=== PATIENT | female | born 1950 | race Caucasian/White ===

== ENCOUNTER 2018-08-12 19:08 | Inpatient (IN) | payer OTHER, MEDICARE ==
[~2018-08-12] VITALS: Ht 170.2 cm; Wt 71.7 kg
--- NOTE | ~2018-08-12 | EKG ---
[place] [address] [employer] [facility] [place] [address] ELECTROCARDIOGRAM REPORT Name: MAGDALENO NINO Room #: 247-P ADM IN M.R.#: [id number] Admission: 08/12/18 Attend Phys: Blake Thacker MD Discharge: Date of : 50 Report #: [id number] THIS REPORT FOR: //name// [facility] ED Test Date: 2018-08-12 Test Time: 19:27:06 Pat Name: MAGDALENO NINO Department: Room: [facility] Gender: F Card Hanger: [place] : 1950 Requested By: Eva Benjamin Order Number: [id number] MD: Bryson Mcintyre Measurements Intervals [place] Rate: 70 P: MD: 146 QRS: 35 QRSD: 100 T: 43 QT: 426 QTc: 460 Interpretive Statements Possible atrial-paced rhythm Nonspecific ST and T wave abnormality Compared to ECG 02/13/2018 15:29:00 T-wave abnormality now present Electronically Signed On 08-13-2018 10:49:24 SILO OPERATOR by Bryson Mcintyre [email or web address] <ELECTRONICALLY SIGNED> By: Bryson Mcintyre MD, LOCATED WITHIN [facility] 08/13/18 1049 26 26 Bryson Mcintyre MD, LOCATED [facility]IN [facility] /EPI
[~2018-08-12 19:08] MED LIST: ADDERALL 20 MG20 M1 PO; ADDERALL 30 MG30 MG PO; AMBIEN; ATIVAN1 MG PO; CARISOPRODOL; CARISOPRODOL 3350 MG PO; CELEXA 20 MG TA20 M1 PO; CELEXA40 MG PO; CIPROFLOXACIN500 M1 PO; CITRATE OF MAG296 ML PO; CLONAZEPAM 1 MG1 M1 PO; CLONAZEPAM PO; COLACE100 MG PO; COMBIVENT RESPIM4 GM INH; DEPAKOTE ER500 MG PO; DESYREL100 MG PO; DESYREL150 MG PO; DILAUDID 2 MG TA2 MG PO; DOCUSATE SODIU100 MG PO; DOXYCYCLINE 10100 M1 PO; EFFEXOR XR150 MG PO; EFFEXOR XR75 MG PO; EFFEXOR75 MG PO; ENDOCET 10-3251 EACH PO; FLAGYL500 MG PO; GAS-X125 MG PO; GLYCOLAX POWDER17 G1 PO; HYDROCODON-ACE1 EAC4; HYDROCODON-ACE1 EAC5 PO; IBUPROFEN 800800 M1 PO; LEXAPRO20 MG PO; METAMUCIL197.2 GM; MILK OF MAGNESIA; MOM PO; NEURONTIN 300300 M1 PO; NEURONTIN 300M300 M2 PO; NORCO 5-325 TA1 EACH PO; PERCOCET 10-321 EAC1 PO; PERCOCET 10-321 EACH PO; PERCOCET 5-3251 EACH PO; PERCOCET PO; PHENERGAN 25 MG25 M1 PO; PRILOSEC 20 MG20 MG PO; PROMETHEGAN12.5 MG; PROTONIX40 M1 PO; REMERON15 MG PO; SILENOR6 MG PO; VENLAFAXIN75 MG/1 T1 PO
[2018-08-12 19:10] VITALS: BP 148/88
[2018-08-12 19:36] LABS: URINE BILIRUBIN NEGATIVE (Negative); URINE BLOOD 1+ (Negative); URINE CLARITY CLEAR; URINE COLOR YELLOW; URINE GLUCOSE-RANDOM* NEGATIVE (Negative); URINE KETONES NEGATIVE (Negative); URINE LEUKOCYTES-REFLEX NEGATIVE (Negative); URINE NITRITE-REFLEX NEGATIVE (Negative); URINE PROTEIN (DIPSTICK) NEGATIVE (Negative); URINE UROBILINOGEN 0.2 E.U./dl (0.2-1.0)
[2018-08-12 19:43] LABS: BACTERIA-REFLEX None Seen /HPF (None Seen); CASTS None Seen /LPF (None Seen); CRYSTALS None Seen /LPF (None Seen); SQUAMOUS None Seen /LPF (0-3); URINE RBC 0-2 Rare /HPF (0-2); URINE WBC-REFLEX None Seen /HPF (0-5)
[2018-08-12 19:44] LABS: AMP/METHAMP Negative (Negative); BARBITURATES Negative (Negative); BENZODIAZEPINES POSITIVE (Negative); COCAINE Negative (Negative); METHADONE Negative (Negative); OPIATES Negative (Negative); PCP Negative (Negative)
[2018-08-12 19:49] LABS: ABSOLUTE NEUTROPHILS 2.7 thou/uL (1.4-8.2); BASOPHILS 0.7 % (0.0-2.0); EOSINOPHILS 1.5 % (0.0-3.0); HEMATOCRIT 41.7 % (37.0-47.0); HEMOGLOBIN 14.2 gm/dL (12.0-15.0); LYMPHOCYTES 46.1 % (24.0-44.0); MCH 32.3 pg (26.0-34.0); MCV 95.1 fL (80.0-100.0); MONOCYTES 6.5 % (1.0-8.0); PLATELET COUNT 179 thou/uL (150-400); POLYS 45.2 % (36.0-66.0); RBC 4.39 mil/uL (4.20-5.00); RDW 14.6 % (10.5-14.5); WBC 6.1 thou/uL (4.0-11.0)
[2018-08-12 20:04] LABS: CALCIUM 9.1 mg/dL (8.5-10.1)
[2018-08-12 20:06] LABS: POTASSIUM 5.8 mmol/L (3.5-5.1)
[2018-08-12 21:28] VITALS: BP 107/71
[2018-08-12 22:00] VITALS: BP 114/78
[2018-08-12 22:30] VITALS: BP 114/77
[2018-08-12 23:00] VITALS: BP 125/77
[2018-08-12 23:30] VITALS: BP 116/80
[2018-08-13] VITALS (27 sets, daily range): BP systolic 82–132; BP diastolic 21–87
[2018-08-13 05:25] LABS: CALCIUM 8.4 mg/dL (8.5-10.1)
[2018-08-13 05:32] LABS: POTASSIUM 3.9 mmol/L (3.5-5.1)
[2018-08-13] MEDS ORDERED: TRAZODONE HCL100 MG PO ×2 (09:21)
[2018-08-13] MEDS ORDERED: NEURONTIN 300300 M1 PO ×2 (09:21)
[2018-08-13] MEDS ORDERED: CELEBREX 200 M200 M1 PO ×2 (09:22)
[2018-08-14 07:03] LABS: HEMATOCRIT 35.7 % (37.0-47.0); MCH 32.3 pg (26.0-34.0); MCHC 33.4 g/dL (28.0-37.0); MCV 96.6 fL (80.0-100.0); RBC 3.7 mil/uL (4.20-5.00); RDW 15.1 % (10.5-14.5)
[2018-08-14 07:07] LABS: HEMOGLOBIN 11.9 gm/dL (12.0-15.0)
[2018-08-14 07:17] LABS: ALBUMIN 2.7 g/dL (3.4-5.0); CALCIUM 8.5 mg/dL (8.5-10.1); CREATININE 1.1 mg/dL (0.6-1.0); POTASSIUM 3.9 mmol/L (3.5-5.1); TOTAL BILIRUBIN 0.1 mg/dL (<0.1-1.0); TOTAL PROTEIN 5.6 g/dL (6.4-8.2)
[2018-08-14 08:00] VITALS: BP 94/69
[2018-08-14 10:00] VITALS: BP 88/61
[2018-08-14 12:00] VITALS: BP 100/67
[2018-08-14 14:00] VITALS: BP 104/68
== END 2018-08-14 15:15 | DRG 917 ==
LOC: ER 19:08 → EROBS 20:58 → ICU 20:58
PROVIDERS: Emergency Medicine; Nurse Practitioner Family; Psychiatry & Neurology Psychiatry
DX: T42.4X2A Poisoning by benzodiazepines, intentional self-harm, initial encounter (principal); G93.41 Metabolic encephalopathy; M54.9 Dorsalgia, unspecified; F31.9 Bipolar disorder, unspecified; K21.9 Gastro-esophageal reflux disease without esophagitis; F41.9 Anxiety disorder, unspecified; K59.09 Other constipation; G89.4 Chronic pain syndrome; F43.10 Post-traumatic stress disorder, unspecified; T40.605A Adverse effect of unspecified narcotics, initial encounter; Z95.0 Presence of cardiac pacemaker; Z88.1 Allergy status to other antibiotic agents; Z90.49 Acquired absence of other specified parts of digestive tract; Z87.891 Personal history of nicotine dependence; Z79.899 Other long term (current) drug therapy
CPT/HCPCS: 10078

== ENCOUNTER 2018-08-14 15:18 | Emergency (ER) | payer OTHER, MEDICARE ==
[~2018-08-14] VITALS: Ht 167.6 cm; Wt 80.7 kg
[~2018-08-14 15:18] MED LIST changes: +CELEBREX 200 M200 M1 PO; +TRAZODONE HCL100 MG PO
[2018-08-14 19:29] VITALS: BP 113/79
== END 2018-08-14 19:31 ==
LOC: ER 15:18
DX: S00.93XA Contusion of unspecified part of head, initial encounter (principal); S50.01XA Contusion of right elbow, initial encounter; S70.01XA Contusion of right hip, initial encounter; S70.02XA Contusion of left hip, initial encounter; G89.29 Other chronic pain; M54.9 Dorsalgia, unspecified; F31.9 Bipolar disorder, unspecified; F41.9 Anxiety disorder, unspecified; F90.9 Attention-deficit hyperactivity disorder, unspecified type; K21.9 Gastro-esophageal reflux disease without esophagitis; Z90.49 Acquired absence of other specified parts of digestive tract; Z87.891 Personal history of nicotine dependence; Z88.1 Allergy status to other antibiotic agents; W17.89XA Other fall from one level to another, initial encounter; Y93.89 Activity, other specified; Y92.89 Other specified places as the place of occurrence of the external cause; Y99.8 Other external cause status

== ENCOUNTER 2018-10-17 17:43 | Emergency (ER) | payer OTHER, MEDICARE ==
[~2018-10-17] VITALS: Ht 177.8 cm; Wt 75.8 kg
[2018-10-17] MEDS ORDERED: LIDOCAINE1 EACH TRANSDERM (17:57)
[2018-10-17] MEDS ORDERED: NORCO 5-325 TA1 EACH PO (17:57)
[2018-10-17] MEDS ORDERED: ASPIR 8181 MG PO (17:57)
[2018-10-17] MEDS ORDERED: PANTOPRAZOLE SO40 M1 PO (17:58)
[2018-10-17] MEDS ORDERED: MIRALAX17 GM PO (17:58)
[2018-10-17] MEDS ORDERED: MACRODANTIN100 MG PO (17:58)
[2018-10-17] MEDS ORDERED: SEROQUEL 25 MG25 M1 PO (17:59)
[2018-10-17] MEDS ORDERED: SENNA8.6 MG PO (17:59)
[2018-10-17] MEDS ORDERED: QUETIAPINE FUM100 MG PO (17:59)
[2018-10-17 19:05] LABS: URINE CLARITY CLEAR; URINE COLOR YELLOW; URINE GLUCOSE-RANDOM* NEGATIVE (Negative); URINE KETONES TRACE (Negative); URINE PROTEIN (DIPSTICK) NEGATIVE (Negative); URINE SPECIFIC GRAVITY <= 1.005 (1.005-1.035)
[2018-10-17 19:06] LABS: URINE BILIRUBIN NEGATIVE (Negative); URINE BLOOD TRACE (Negative); URINE LEUKOCYTES-REFLEX NEGATIVE (Negative); URINE NITRITE-REFLEX NEGATIVE (Negative); URINE UROBILINOGEN 0.2 E.U./dl (0.2-1.0)
[2018-10-17 20:50] VITALS: BP 141/76
== END 2018-10-17 20:51 | disposition home or self-care (01) ==
LOC: ER 17:43
PROVIDERS: Emergency Medicine
DX: K59.00 Constipation, unspecified (principal); G89.4 Chronic pain syndrome; F31.9 Bipolar disorder, unspecified; F41.0 Panic disorder [episodic paroxysmal anxiety]; F90.9 Attention-deficit hyperactivity disorder, unspecified type; K21.9 Gastro-esophageal reflux disease without esophagitis; Z87.891 Personal history of nicotine dependence; Z88.1 Allergy status to other antibiotic agents